=== PATIENT | female | born 1960 | race Caucasian/White ===

== ENCOUNTER 2016-08-29 21:05 | Inpatient (IN) | payer OTHER ==
--- NOTE | 2016-08-29 21:09 | PDOC ---
History of Present Illness - General History Source: Patient, Spouse, Old Records Exam Limitations: No Limitations - History of Present Illness Initial Comments: 08/29/16 21:23 The patient is a 56 year old female, accompanied by , with no past medical history, who presents to the emergency department today for further evaluation of jaundice for 2 days. The patient states that her noticed a yellowing tint to her eyes and face and decided to present to the hospital. The patient notes that she is not experiencing any type of pain. The patient denies any recent travel. The patient denies any recent sick contacts. The patient denies fever, chills, and sweats. The patient denies nausea, vomiting, and diarrhea. The patient denies chest pain, cough, and shortness of breath. PMD: Dr. Adams Stanley [phone] PAST MEDICAL HISTORY: No significant history reported PAST SURGICAL HISTORY: No significant history reported FAMILY HISTORY: No pertinent history reported SOCIAL HISTORY: Quit smoking 30 years ago. Denies alcohol use. ALLERGIES: Diazepam MEDICATIONS: Reviewed General: No fevers or chills, no weakness, no weight loss HEENT: No change in vision. No sore throat, No ear pain CardioVascular: No chest pain or shortness of breath Respiratory:No cough, or wheezing. Gastrointestinal: no nausea, vomiting, diarrhea or constipation, No rectal bleeding Genitourinary: No dysuria, hematuria, or frequency Musculoskeletal: No joint or muscle pain or swelling Neurologic: No headache, vertigo, dizziness or loss of consciousness Psychiatric: nor depression Skin: (+) Jaundice. No rashes or easy bruising Endocrine: no increased thirst or abnormal weight change Allergic: no skin or latex allergy All other systems reviewed and normal General: Well-nourished well-developed individual, no acute distress HEENT: Throat: Normal, tonsils normal, no erythema or exudate Neck: Supple, no meningeal signs, no lymphadenopathy Eyes: (+) Jaundice sclera. Pupils equally reactive and round, extraocular motion intact Chest: Nontender to palpation Cardiac: S1-S2 normal, regular rate and rhythm, no murmurs rubs or gallops Respiratory: Lungs clear to auscultation bilateral Abdomen: Soft, nondistended, normal bowel sounds, nontender to palpation diffusely Extremities: Warm, dry, no cyanosis, clubbing, or edema Skin: (+) Marked jaundice of skin Neuro: Alert and oriented x3, nonfocal exam, grossly intact, normal gait Psych: Normal mood and affect <Darwin Harris - Last Filed: 08/29/16 21:23> - History of Present Illness Initial Comments: 08/29/16 23:45 A portion of this note was documented by scribe services under my direction. I have reviewed the details of the note, within reason, and agree with the documentation. The case summary and management plan written by me. EEG shows sinus bradycardia at a rate of 52, normal intervals no acute ST-T wave changes Chest x-ray: No acute pathology Assessment and plan: This is a 56-year-old female who comes in complaining of jaundice. Patient said she has a progressive nonpainful jaundice times several days. Patient had a total bilirubin of 17.2. Patient has a CT of the abdomen pending to rule out obstruction versus pancreatic CA. Patient will be admitted to an inpatient bed. Patient will be admitted by the hospitalist service for Dr. Stanley who is her primary care doct <Carolin Horvath I - Last Filed: 08/29/16 23:50> - General Chief Complaint: Jaundice Stated Complaint: JAUNDICE Time Seen by Provider: 08/29/16 21:08 Past History <Darwin Harris - Last Filed: 08/29/16 21:23> <Carolin Horvath I - Last Filed: 08/29/16 23:50> - Past Medical History Allergies/Adverse Reactions: Allergies Allergy/AdvReac Type Severity Reaction Status Date / Time diazepam [From Valium] AdvReac Verified 08/29/16 21:06 Home Medications: Ambulatory Orders Ascorbate Calcium [Vitamin C] 1,000 mg PO DAILY 08/29/16 Atorvastatin Ca [Lipitor] 5 mg PO HS 08/29/16 Cyanocobalamin (Vitamin B-12) [Vitamin B12] 2,500 mcg PO DAILY 08/29/16 Review of Systems - Review of Systems Able to Perform ROS?: Yes <Darwin Harris - Last Filed: 08/29/16 21:23> *Physical Exam - Vital Signs Last Vital Signs Temp Pulse Resp BP Pulse Ox 97.4 F L 58 L 18 151/88 98 08/29/16 21:14 08/29/16 21:14 08/29/16 21:14 08/29/16 21:14 08/29/16 21:14 <Darwin Harris - Last Filed: 08/29/16 21:23> ED Treatment Course - LABORATORY CBC & Chemistry Diagram: 08/29/16 21:09 08/29/16 21:09 <Carolin Horvath I - Last Filed: 08/29/16 23:50> *DC/Admit/Observation/Transfer - Attestations Scribe Attestion: 08/29/16 21:23 Documentation prepared by Darwin Harris, acting as medical records custodian for Carolin Horvath MD. <Darwin Harris - Last Filed: 08/29/16 21:23> - Discharge Dispostion Admit: Yes <Carolin Horvath I - Last Filed: 08/29/16 23:50> Diagnosis at time of Disposition: Jaundice, Elevated liver function tests - Discharge Dispostion Condition at time of disposition: Stable - Referrals Referrals: Adams Stanley MD [Primary Care Provider] -
[2016-08-29 21:27] LABS: PH,URINE 5.5 (4.5-8); URINE APPEARANCE Clear; URINE BILIRUBIN 3+ (NEGATIVE); URINE GLUCOSE (UA) Negative (NEGATIVE); URINE KETONE Negative (NEGATIVE); URINE LEUK ESTERASE Negative (NEGATIVE); URINE NITRITE Negative (NEGATIVE); URINE PROTEIN Negative (NEGATIVE); URINE UROBILINOGEN 0.2 E.U/dl (0.2-1.0)
[2016-08-29 21:28] LABS: URINE COLOR YELLOW
[2016-08-29 21:29] LABS: URINE BLOOD 1 (NEGATIVE)
[2016-08-29 21:33] LABS: URINE BACTERIA FEW /hpf (NEGATIVE)
[2016-08-29 21:44] LABS: BASOPHIL 3.6 % (0-2.0); EOSINOPHIL 3.6 % (0-4.5); MCH 32.1 pg (25.7-33.7); MCHC 34.5 g/dl (32.0-36.0); MEAN PLT VOLUME 9.3 fl (7.5-11.1); NEUTROPHILS 67.3 % (42.8-82.8); PLATELET COUNT 339 K/MM3 (134-434); WHITE BLOOD COUNT 7.8 K/mm3 (4.0-10.8)
[2016-08-29 21:48] LABS: INR 0.96 (0.82-1.09); PROTHROMBIN TIME (PATIENT) 10.8 SEC (10.2-13.0)
[2016-08-29 22:08] LABS: ALK PHOS 786 U/L (32-92); ANION GAP 8 (8-16); CALCIUM 9.7 mg/dl (8.4-10.2); CO2 29 mmol/L (22-28); CREATININE 0.5 mg/dl (0.6-1.3); GLUCOSE,RANDOM 105 mg/dl (74-106); SGOT/AST 267 U/L (10-42); TOT PROT 7.9 g/dl (6.4-8.3)
[2016-08-29 22:13] LABS: BILIRUBIN,TOTAL 17.7 mg/dl (0.2-1.0)
[2016-08-29 22:54] LABS: SGPT/ALT 720 U/L (10-40)
[2016-08-30 00:23] VITALS: BMI 22.8
[2016-08-30] MEDS ORDERED: SODIUM CHLORIDE 1,000 ML IV SCH (01:30)
--- NOTE | 2016-08-30 07:13 | HP ---
CHIEF COMPLAINT: Jaundice PCP: Dr Stanley HISTORY OF PRESENT ILLNESS: Patient is a 56 year old female with a past medical history of hyperlipidemia. Patient report her noted her to be jaundiced 2 days ago. However, within the past 24 hours, the patient reports a worsening of jaundice and sought evaluation in the emergency department. Patient denies any abdominal pain, nausea, or vomiting. She does report a past diagnosis of gallstones as a teenager. She was given antibiotics and the pain resolved. Patient denies any reoccurrence since adolescence. ER course was notable for: (1) ct abd/pelvis w/o contrast, distended gallbladder with suspected biliary sludge/small calculi (2) ast 260 alt 720 (3) wbc 7.8 Recent Travel: none PAST MEDICAL HISTORY: hyperlipidemia PAST SURGICAL HISTORY: tonsilectomy (child) Social History: resides with , employed Smoking: none Alcohol:none Drugs: none Family History: mother-, MS father- CAD Allergies diazepam [From Valium] Adverse Reaction (Verified 08/29/16 21:06) HOME MEDICATIONS: Home Medications Medication Instructions Recorded Ascorbate Calcium [Vitamin C] 1,000 mg PO DAILY 08/29/16 Atorvastatin Ca [Lipitor] 5 mg PO HS 08/29/16 Cyanocobalamin (Vitamin B-12) 2,500 mcg PO DAILY 08/29/16 [Vitamin B12] REVIEW OF SYSTEMS CONSTITUTIONAL: Absent: fever, chills, diaphoresis, generalized weakness, malaise, loss of appetite, weight change HEENT: Absent: rhinorrhea, nasal congestion, throat pain, throat swelling, difficulty swallowing, mouth swelling, ear pain, eye pain, visual changes CARDIOVASCULAR: Absent: chest pain, syncope, palpitations, irregular heart rate, lightheadedness , peripheral edema RESPIRATORY: Absent: cough, shortness of breath, dyspnea with exertion, orthopnea, wheezing, stridor, hemoptysis GASTROINTESTINAL: Absent: abdominal pain, abdominal distension, nausea, vomiting, diarrhea, constipation, melena, hematochezia GENITOURINARY: Absent: dysuria, frequency, urgency, hesitancy, hematuria, flank pain, genital pain MUSCULOSKELETAL: Absent: myalgia, arthralgia, joint swelling, back pain, neck pain SKIN: Present: jaundice Absent: rash, itching, pallor HEMATOLOGIC/IMMUNOLOGIC: Absent: easy bleeding, easy bruising, lymphadenopathy, frequent infections ENDOCRINE: Absent: unexplained weight gain, unexplained weight loss, heat intolerance, cold intolerance NEUROLOGIC: Absent: headache, focal weakness or paresthesias, dizziness, unsteady gait, seizure, mental status changes, bladder or bowel incontinence PSYCHIATRIC: Absent: anxiety, depression, suicidal or homicidal ideation, hallucinations. PHYSICAL EXAMINATION Vital Signs - 24 hr 08/30/16 08/30/16 08/30/16 00:14 00:16 04:14 Temperature 98.2 F 98.2 F 97.9 F Pulse Rate 53 L 53 L 53 L Respiratory 18 18 18 Rate Blood Pressure 143/70 143/70 116/58 O2 Sat by Pulse 100 Oximetry (%) 08/30/16 06:37 Temperature Pulse Rate Respiratory Rate Blood Pressure O2 Sat by Pulse 100 Oximetry (%) GENERAL: Awake, alert, and fully oriented, in no acute distress. HEAD: Normal with no signs of trauma. EYES: Pupils equal, round and reactive to light, extraocular movements intact, icteric sclera conjunctiva clear. No lid lag. EARS, NOSE, THROAT: Ears normal, nares patent, oropharynx clear without exudates. Moist mucous membranes. NECK: Normal range of motion, supple without lymphadenopathy, JVD, or masses. LUNGS: Breath sounds equal, clear to auscultation bilaterally. No wheezes, and no crackles. No accessory muscle use. HEART: Regular rate and rhythm, normal S1 and S2 without murmur, rub or gallop. ABDOMEN: Soft, nontender, not distended, normoactive bowel sounds, no guarding, no rebound, no masses. No hepatomegaly or splenomegaly. MUSCULOSKELETAL: Normal range of motion at all joints. No bony deformities or tenderness. No CVA tenderness. UPPER EXTREMITIES: 2+ pulses, warm, well-perfused. No cyanosis. No clubbing. No peripheral edema. LOWER EXTREMITIES: 2+ pulses, warm, well-perfused. No calf tenderness. No peripheral edema. NEUROLOGICAL: Cranial nerves II-XII intact. Normal speech. Normal gait. PSYCHIATRIC: Cooperative. Good eye contact. Appropriate mood and affect. SKIN: Jaundice, Warm, dry, normal turgor, no rashes or lesions noted, normal capillary refill. ASSESSMENT/PLAN: 1) GI transanimitis - ct scan of abd/pelvis reviewed, concern for choleductholiasis, pt is pending MRCP - pending hepatitis panel - NPO-->IVF - will start on rocephin and flagyl - case discussed with Dr Morris, GI, in regards to high clinical suspicion for choleductholiasis and ERCP, pt will be transferred to [facility] for further GI evaluation and management. 2) Card hyperlipidemia - hold statin due to elevated LFT's F/E/N - npo-->ivf - replete lytes prn PPX - zantac - hold ac pending GI eval, pt oob - scd dispo: requires inpatient admission. Problem List - Problem (1) Cholelithiasis with choledocholithiasis Code(s): K80.70 - CALCULUS OF GB AND BILE DUCT W/O CHOLECYST W/O OBSTRUCTION Visit type - Emergency Visit Emergency Visit: Yes ED Registration Date: 08/29/16 Care time: The patient presented to the Emergency Department on the above date and was hospitalized for further evaluation of their emergent condition. - New Patient This patient is new to me today: Yes Date on this admission: 08/30/16 - Critical Care Critical Care patient: No
[2016-08-30 08:40] LABS: ALBUMIN 3.3 g/dl (3.5-5.0); ALK PHOS 715 U/L (32-92); ANION GAP 9 (8-16); CALCIUM 9.2 mg/dl (8.4-10.2); CO2 25 mmol/L (22-28); GLUCOSE,RANDOM 102 mg/dl (74-106); SGOT/AST 212 U/L (10-42); TOT PROT 6.5 g/dl (6.4-8.3)
[2016-08-30 08:48] LABS: MCH 31.5 pg (25.7-33.7); MEAN CELL VOLUME 92.8 fl (80-96); MEAN PLT VOLUME 9.3 fl (7.5-11.1); PLATELET COUNT 308 K/MM3 (134-434); RDW 14.2 % (11.6-15.6); WHITE BLOOD COUNT 5.9 K/mm3 (4.0-10.8)
[2016-08-30 09:26] LABS: CREATININE < 0.3 mg/dl (0.6-1.3); SGPT/ALT 565 U/L (10-40)
[2016-08-30] MEDS ORDERED: CEFTRIAXONE 1 GM in DEXTROSE 5%-WATER - 50 ML IVPB SCH (12:00)
[2016-08-30] MEDS: ACETAMINOPHEN/CAFFEINE/BUTALBITAL 1 TAB PO PRN ×2 (12:02→17:52)
[2016-08-30] MEDS: RANITIDINE HCL 150 MG TABLET (FP) PO SCH (12:02)
[2016-08-30] MEDS: DEXTROSE 5%-NORMAL SALINE 1,000 ML IV SCH (12:02)
--- NOTE | 2016-08-30 12:16 | EKG ---
Test Reason : Blood Pressure : / mmHG Vent. Rate : 052 BPM Atrial Rate : 052 BPM P-R Int : 132 ms QRS Dur : 076 ms QT Int : 454 ms P-R-T Axes : 047 058 058 degrees QTc Int : 422 ms SINUS BRADYCARDIA OTHERWISE NORMAL ECG NO PREVIOUS ECGS AVAILABLE Confirmed by KETAN NELSON, XIAO ([id number]) on 08/30/2016 12:15:47 PM Referred By: MD SCHWARZ Confirmed By:XIAO ACEVES MD
[2016-08-30] MEDS: CEFTRIAXONE 50 ML IVPB SCH (12:17)
[2016-08-30 12:29] LABS: AMYLASE 45 U/L (25-125)
[2016-08-30] MEDS: METRONIDAZOLE 500 MG PREMIXED 100 ML IVPB SCH ×2 (12:40→17:52)
[2016-08-31] MEDS: METRONIDAZOLE 500 MG PREMIXED 100 ML IVPB SCH ×3 (01:28→17:24)
[2016-08-31 08:42] LABS: ALK PHOS 621 U/L (32-92); ANION GAP 7 (8-16); BILIRUBIN,TOTAL 14.1 mg/dl (0.2-1.0); CO2 29 mmol/L (22-28); GLUCOSE,RANDOM 132 mg/dl (74-106); MAGNESIUM 1.9 mg/dL (1.8-2.4); PHOSPHOROUS 3.4 mg/dl (2.5-4.6); SGOT/AST 182 U/L (10-42); TOT PROT 5.8 g/dl (6.4-8.3)
[2016-08-31 08:59] LABS: BASOPHIL 0.5 % (0-2.0); CREATININE < 0.3 mg/dl (0.6-1.3); MCHC 34.6 g/dl (32.0-36.0); MEAN CELL VOLUME 92.5 fl (80-96); MEAN PLT VOLUME 9.6 fl (7.5-11.1); NEUTROPHILS 67.5 % (42.8-82.8); PLATELET COUNT 286 K/MM3 (134-434); RDW 14.1 % (11.6-15.6); SGPT/ALT < 9 U/L (10-40); WHITE BLOOD COUNT 5.7 K/mm3 (4.0-10.8)
[2016-08-31] MEDS: RANITIDINE HCL 150 MG TABLET (FP) PO SCH (09:10)
[2016-08-31] MEDS: CEFTRIAXONE 50 ML IVPB SCH (09:10)
[2016-08-31] MEDS: DEXTROSE 5%-NORMAL SALINE 1,000 ML IV SCH ×3 (12:16→17:35)
--- NOTE | 2016-08-31 13:04 | PN ---
Physical Exam: SUBJECTIVE: Patient seen and examined, reports feeling well, denies any abdominal pain, patient awaiting bed availability at [facility] for GI evaluation. OBJECTIVE: Patient is a 56 year old female with a past medical history of hyperlipidemia. patient was admitted from the emergency department for emergent condition. Vital Signs Period Temp Pulse Resp BP Sys/Horne Pulse Ox Last 24 Hr 97.8 F-98.4 F 47-58 18-18 98-129/55-63 98-100 GENERAL: The patient is awake, alert, and fully oriented, in no acute distress. HEAD: Normal with no signs of trauma. EYES: PERRL, extraocular movements intact, sclera icteric, conjunctiva clear. No ptosis. ENT: Ears normal, nares patent, oropharynx clear without exudates, moist mucous membranes. NECK: Trachea midline, full range of motion, supple. LUNGS: Breath sounds equal, clear to auscultation bilaterally, no wheezes, no crackles, no accessory muscle use. HEART: Regular rate and rhythm, S1, S2 without murmur, rub or gallop. ABDOMEN: Soft, nontender, nondistended, normoactive bowel sounds, no guarding, no rebound, no hepatosplenomegaly, no masses. EXTREMITIES: 2+ pulses, warm, well-perfused, no edema. NEUROLOGICAL: Cranial nerves II through XII grossly intact. Normal speech, gait not observed. PSYCH: Normal mood, normal affect. SKIN: jaundic, Warm, dry, normal turgor, no rashes or lesions noted Laboratory Results - last 24 hr 08/30/16 08/30/16 08/31/16 07:38 07:38 07:47 WBC Cancelled 5.7 Corrected WBC (auto) Cancelled RBC Cancelled 4.11 Hgb Cancelled 13.2 Hct Cancelled 38.1 MCV Cancelled 92.5 MCHC Cancelled 34.6 RDW Cancelled 14.1 Plt Count Cancelled 286 MPV Cancelled 9.6 Neutrophils % Cancelled 67.5 Lymphocytes % Cancelled 15.5 Monocytes % Cancelled 9.5 Eosinophils % Cancelled 7.0 H D Basophils % Cancelled 0.5 Differential Comment Cancelled Smudge Cells Cancelled Platelet Estimate Cancelled Platelet Comment Cancelled RBC Morphology Cancelled Sodium Potassium Chloride Carbon Dioxide Anion Gap BUN Creatinine Creat Clearance w eGFR Random Glucose Calcium Phosphorus Magnesium Total Bilirubin AST ALT Alkaline Phosphatase Total Protein Albumin Hepatitis C Antibody <0.1 08/31/16 07:47 WBC Corrected WBC (auto) RBC Hgb Hct MCV MCHC RDW Plt Count MPV Neutrophils % Lymphocytes % Monocytes % Eosinophils % Basophils % Differential Comment Smudge Cells Platelet Estimate Platelet Comment RBC Morphology Sodium 140 Potassium 4.3 Chloride 104 Carbon Dioxide 29 H Anion Gap 7 L BUN 9 D Creatinine < 0.3 L Creat Clearance w eGFR > 60 Random Glucose 132 H D Calcium 9.0 Phosphorus 3.4 Magnesium 1.9 Total Bilirubin 14.1 H AST 182 H ALT < 9 L D Alkaline Phosphatase 621 H Total Protein 5.8 L Albumin 3.0 L Hepatitis C Antibody Active Medications Generic Name Dose Route Start Last Admin Trade Name Freq PRN Reason Stop Dose Admin Acetaminophen/Butalbital/Caffeine 1 tablet 08/30/16 11:47 08/30/16 17:52 Fioricet - PO 1 tablet Q6H PRN Administration HEADACHE Dextrose/Sodium Chloride 1,000 mls @ 100 mls/hr 08/30/16 12:00 08/31/16 12:16 D5-Ns - IV 100 mls/hr ASDIR FRANCISCO Administration Metronidazole 100 mls @ 100 mls/hr 08/30/16 12:15 08/31/16 09:32 Flagyl 500mg Premixed Ivpb - IVPB 100 mls/hr Q8H-IV FRANCISCO Administration Ceftriaxone Sodium 50 mls @ 100 mls/hr 08/30/16 12:15 08/31/16 09:10 Rocephin 1gm Ivpb (Pre-Docked) IVPB 100 mls/hr DAILY FRANCISCO Administration Ranitidine HCl 150 mg 08/30/16 12:00 08/31/16 09:10 Zantac - PO 150 mg DAILY FRANCISCO Administration IMAGING ct of abd/pelvis: distended gallbladder with suspected bilary sludge/small calculi, moderate dilation of the intra and extrahepatic bililary tree with cbc measuring up to 1.5cm (as per radiologist, Dr Silveira) MRI of abd/pelvis w/mrcp: distal CBD obstructive process resulting in marked proximal intra and extrahepatic bililary ductal dilation with cystic duct dilation and marked distention of gallbladder, no evidence of cholelithasis or choledocholithiasis. ASSESSMENT/PLAN: 1) GI CBD obstruction likely secondary to stricture vs neoplasm - MRCP reviewed, pt is pending transfer to [facility] for GI eval, case discussed with Dr Morris in regards to ERCP - remain npo continue ivf - continue rocephin and flagyl - ast/alt trending downward, repeat lft's in am, (continue to trend) ca 19, cea , afp - hepatitis c negative, pending complete hepatitis panel 2) Card hyperlipidemia - hold statin due to elevated LFT's F/E/N - npo-->ivf - replete lytes prn PPX - zantac - hold ac pending GI eval, pt oob - scd dispo: requires inpatient admission. Problem List - Problems (1) Common bile duct (CBD) obstruction Code(s): K83.1 - OBSTRUCTION OF BILE DUCT
[2016-08-31] MEDS: ACETAMINOPHEN/CAFFEINE/BUTALBITAL 1 TAB PO PRN (16:19)
[2016-08-31] MEDS ORDERED: traMADol HCL 50 MG TABLET PO PRN (17:04)
--- NOTE | 2016-08-31 17:20 | CONSULT ---
Consult Consult Specialty:: General Surgery Referred by:: Tomasa Camarillo NP Reason for Consultation:: CBD obstruction - History of Present Illness Chief Complaint: painless jaundice History of Present Illness: 56yo healthy F with hyperlipidemia first noticed yellow tinge to skin about a week to a week and a half ago, associated with light stools. Color change became prominent in last few days, and able to confirm, so she came to ER. Denies pain, n/v, diarrhea, f/c, bloody or black stools, weight gain or loss , night sweats; + bloating at times recently, better with gas-X, some recent constipation, also better, light-colored stools started about the same time. Last BM yesterday. Workup in the ER showed significantly elevated LFTs (bili ~15 , GGT 2000, transaminitis), normal INR, normal wbc, afebrile. Initial noncontrast CT suggested possible sludge or tiny calculi in gallbladder with intra and extrahepatic biliary dilation, CBD 1.5cm. MRCP without contrast showed CBD to 1.6cm above smooth narrowing just before ampulla, + intrahepatic dilation, no evidence of stones in gallbladder or ducts, no evident pancreatic or liver masses. Pt states jaundice has improved some today. LFTs are declining. GI has been consulted for ERCP. Pt also states she had "sand in urine" in younger years, which resolved with an antibiotic. At one point, she thought that was related to gallstones, but more likely represented kidney or ureteral stones. - History Source History Provided By: Patient, Medical Record Limitations to Obtaining History: No Limitations - Past Medical History Cardio/Vascular: Yes: Hyperlipdemia, Murmur (as child, went away) Renal/: Yes: Renal Calculi (describes "sand in urine" in youth, went away with antibiotics) ...LMP: 11/30/10 ...: No - Past Surgical History Past Surgical History: Yes: Tubal Ligation (laparoscopic 24 yrs ago) Additional Surgical History: bilateral breast implants ~20 yrs ago - Alcohol/Substance Use Hx Alcohol Use: Yes (occas wine cooler) History of Substance Use: reports: None - Smoking History Smoking history: Former smoker Have you smoked in the past 12 months: No Aproximately how many cigarettes per day: 0 If you are a former smoker, when did you quit?: 1994 - 1ppd x 20 yrs Home Medications - Allergies Allergies/Adverse Reactions: Allergies Allergy/AdvReac Type Severity Reaction Status Date / Time diazepam [From Valium] AdvReac Intermediate Vomiting Verified 08/31/16 13:15 - Home Medications Home Medications: Ambulatory Orders Glucosamine/MSM/Chondroitin A [Glucosamine Chondroit Msm Tab] 2 each PO DAILY tablet 06/11/15 Multivitamin [Daily Multiple Vitamin] 1 each PO DAILY tablet 06/11/15 Ascorbate Calcium [Vitamin C] 1,000 mg PO DAILY 08/29/16 Atorvastatin Ca [Lipitor] 5 mg PO HS 08/29/16 Cyanocobalamin (Vitamin B-12) [Vitamin B12] 1,000 mcg PO DAILY 08/29/16 Home Medications (free text): also fish oil, hip&joint supplement, b-complex Family Disease History - Family Disease History Family Disease History: Heart Disease: Father (ND, CABGx3, stroke after), Other : Mother (MS, asthma, emphysema) Review of Systems Findings/Remarks: Pt drinks 3-4 cups coffee daily, plus sometimes tea. - Review of Systems Constitutional: denies: Chills, Fever, Night Sweats, Unintentional Wgt. Loss Eyes: reports: Other (wears glasses). denies: Blurred Vision, Double Vision HENT: denies: Difficult Swallowing, Hearing Loss, Throat Pain Cardiovascular: denies: Chest Pain, Palpitations, Shortness of Breath Respiratory: denies: Cough, Exercise Intolerance, SOB, SOB on Exertion Gastrointestinal: reports: Bloating (recently), Constipation (recently, got better with gas-x), Other (light (celi-colored) stools for about 1.5 weeks). denies: Abdominal Pain, Diarrhea, Melena, Nausea, Rectal Bleeding, Vomiting Genitourinary: denies: Burning, Dysuria Breasts: reports: Breast Implants Musculoskeletal: denies: Back Pain, Joint Pain, Joint Swelling, Muscle Pain, Muscle Weakness Integumentary: reports: Change in Color (jaundice x about a week and a half - wasn't sure at first). denies: Pruritis Neurological: reports: Headache (not usually, but has now from caffeine withdrawal). denies: Confusion, Dizziness Endocrine: denies: Unexplained Weight Gain, Unexplained Weight Loss Hematology/Lymphatic: denies: Easily Bruised, Swollen Glands Physical Exam Vital Signs: Vital Signs Temperature 98.4 F 08/31/16 09:00 Pulse Rate 58 L 08/31/16 11:35 Respiratory Rate 18 08/31/16 09:00 Blood Pressure 129/62 08/31/16 11:35 O2 Sat by Pulse Oximetry (%) 98 08/31/16 10:20 Constitutional: Yes: Well Nourished, No Distress, Calm Eyes: Yes: EOM Intact, Sclera Icterus HENT: Yes: Atraumatic, Normocephalic Cardiovascular: Yes: Regular Rate and Rhythm. No: Murmur Respiratory: Yes: Regular, CTA Bilaterally Gastrointestinal: Yes: Normal Bowel Sounds, Soft. No: Distention, Hepatomegaly , Splenomegaly, Tenderness ...Rectal Exam: Yes: Deferred Breast(s): Yes: Breast Implants (bilaterally) Musculoskeletal: No: Back Pain, Joint Stiffness Extremities: No: Calf Tenderness, Deformity Edema: No Peripheral Pulses WNL: Yes Integumentary: Yes: Jaundice (less than yesterday per pt). No: Bruising, Rash Neurological: Yes: Alert, Oriented Labs: CBC, BMP 08/31/16 07:47 08/31/16 07:47 CMP Sodium 140 mmol/L (136-145) 08/31/16 07:47 Potassium 4.3 mmol/L (3.5-5.1) 08/31/16 07:47 Chloride 104 mmol/L (98-107) 08/31/16 07:47 Carbon Dioxide 29 mmol/L (22-28) H 08/31/16 07:47 Anion Gap 7 (8-16) L 08/31/16 07:47 BUN 9 mg/dl (7-18) D 08/31/16 07:47 Creatinine < 0.3 mg/dl (0.6-1.3) L 08/31/16 07:47 Creat Clearance w eGFR > 60 (>60) 08/31/16 07:47 Random Glucose 132 mg/dl (74-106) H D 08/31/16 07:47 Calcium 9.0 mg/dl (8.4-10.2) 08/31/16 07:47 Phosphorus 3.4 mg/dl (2.5-4.6) 08/31/16 07:47 Magnesium 1.9 mg/dL (1.8-2.4) 08/31/16 07:47 Total Bilirubin 14.1 mg/dl (0.2-1.0) H 08/31/16 07:47 Direct Bilirubin 8.6 mg/dl (0.0-0.2) H D 08/30/16 07:00 GGT 2010 U/L (3-64) H 08/29/16 21:32 AST 182 U/L (10-42) H 08/31/16 07:47 ALT < 9 U/L (10-40) L D 08/31/16 07:47 Alkaline Phosphatase 621 U/L (32-92) H 08/31/16 07:47 Total Protein 5.8 g/dl (6.4-8.3) L 08/31/16 07:47 Albumin 3.0 g/dl (3.5-5.0) L 08/31/16 07:47 Total Amylase 45 U/L (25-125) 08/30/16 07:38 Lipase 48 U/L (22-51) 08/30/16 07:38 INR, PTT INR 0.96 (0.82-1.09) L 08/29/16 21:09 Imaging - Results Cat Scan: Report Reviewed (cannot see images) MRI: Report Reviewed (distal CBD smooth narrowing just above ampulla with dilation above to 1.6cm and intrahepatic dilation, no stones in GB or duct, done without contrast) Problem List - Problems (1) Common bile duct (CBD) obstruction Assessment/Plan: Pt with painless jaundice, CBD obstruction without evidence of stones. GI consulted for ERCP - will likely need brushings/biopsies and may need stent. Recommend sending tumor markers - Ca 19.9, AFP, CEA. Agree with IV hydration and NPO; if ERCP not to be done today, may consider allowing po. Would avoid acetaminophen (for liver) and aspirin/NSAIDs (pending procedure). Pt may at some point need MRCP repeated with contrast. Trend labs, LFTs already improving. INR normal, consider baseline PTT. Depending on findings at ERCP and other results, pt may need tertiary center and hepatobiliary surgeon. In absence of gallstones, simple cholecystectomy likely not indicated. Will remain available for questions or followup needs. Discussed with S[employer] Tomasa Camarillo. Thank you for the opportunity to participate in the care of this patient. Code(s): K83.1 - OBSTRUCTION OF BILE DUCT
--- NOTE | 2016-08-31 19:54 | CON.GI ---
Consult Consult Specialty:: gastroenterology Referred by:: hospitalist - History of Present Illness History of Present Illness: 56 y/o F was doing well until 2 weeks ago when he developed progressive jaundice , icteric sclerae. One week she developed tea colored urine. She denies weight loss, fever and abdominal pain. - History Source History Provided By: Patient - Past Medical History Cardio/Vascular: Yes: Hyperlipdemia, Murmur (as child, went away) Renal/: Yes: Renal Calculi (describes "sand in urine" in youth, went away with antibiotics) ...LMP: 11/30/10 ...: No - Past Surgical History Past Surgical History: Yes: Tubal Ligation (laparoscopic 24 yrs ago) Additional Surgical History: bilateral breast implants ~20 yrs ago - Alcohol/Substance Use Hx Alcohol Use: Yes (occas wine cooler) History of Substance Use: reports: None - Smoking History Smoking history: Former smoker Have you smoked in the past 12 months: No Aproximately how many cigarettes per day: 0 If you are a former smoker, when did you quit?: 1994 - pd x 20 yrs Home Medications - Allergies Allergies/Adverse Reactions: Allergies Allergy/AdvReac Type Severity Reaction Status Date / Time diazepam [From Valium] AdvReac Intermediate Vomiting Verified 08/31/16 13:15 - Home Medications Home Medications: Ambulatory Orders Glucosamine/MSM/Chondroitin A [Glucosamine Chondroit Msm Tab] 2 each PO DAILY tablet 06/11/15 Multivitamin [Daily Multiple Vitamin] 1 each PO DAILY tablet 06/11/15 Ascorbate Calcium [Vitamin C] 1,000 mg PO DAILY 08/29/16 Atorvastatin Ca [Lipitor] 5 mg PO HS 08/29/16 Cyanocobalamin (Vitamin B-12) [Vitamin B12] 1,000 mcg PO DAILY 08/29/16 Family Disease History - Family Disease History Family Disease History: Heart Disease: Father (ND, CABGx3, stroke after), Other : Mother (MS, asthma, emphysema) Review of Systems - Review of Systems Constitutional: reports: Fever Eyes: denies: Blind Spots HENT: denies: Difficult Swallowing Neck: denies: Decreased ROM Cardiovascular: denies: Chest Pain Respiratory: denies: Cough Gastrointestinal: denies: Abdominal Pain, Bloating, Constipation, Diarrhea, Dysphagia, Indigestion, Melena, Nausea, Rectal Bleeding, Vomiting Physical Exam-GI Vital Signs: Vital Signs Temperature 97.6 F 08/31/16 18:41 Pulse Rate 49 L 08/31/16 18:41 Respiratory Rate 20 08/31/16 18:41 Blood Pressure 124/72 08/31/16 18:41 O2 Sat by Pulse Oximetry (%) 99 08/31/16 14:00 Constitutional: Yes: Well Nourished Eyes: Yes: Conjunctiva Clear HENT: Yes: Atraumatic Neck: Yes: Trachea Midline Cardiovascular: Yes: Regular Rate and Rhythm Respiratory: Yes: CTA Bilaterally ...Palpate: Yes: Soft. No: Firm/Rigid, Guarding, Hepatomegaly, Mass, Pulsatile Mass, Splenomegaly, Tenderness, Tenderness, Epigastium Labs: CBC, BMP 08/31/16 07:47 08/31/16 07:47 INR, PTT INR 0.96 (0.82-1.09) L 08/29/16 21:09 Problem List - Problems (1) Common bile duct stricture Assessment/Plan: R> for ERCP discussed procedure with the patient and her son including pancreatitis, consent obtained Code(s): K83.1 - OBSTRUCTION OF BILE DUCT
[2016-09-01 00:10] LABS: HEP B SURFACE AB Reactive (.)
[2016-09-01] MEDS: DEXTROSE 5%-NORMAL SALINE 1,000 ML IV SCH (01:00)
[2016-09-01] MEDS: METRONIDAZOLE 500 MG PREMIXED 100 ML IVPB SCH ×2 (01:15→10:20)
[2016-09-01 07:50] LABS: BASOPHIL 0.5 % (0-2.0); EOSINOPHIL 7.4 % (0-4.5); MCH 32.2 pg (25.7-33.7); MCHC 34.4 g/dl (32.0-36.0); MEAN CELL VOLUME 93.6 fl (80-96); MEAN PLT VOLUME 9.2 fl (7.5-11.1); NEUTROPHILS 65.5 % (42.8-82.8); PLATELET COUNT 252 K/MM3 (134-434); RDW 14.3 % (11.6-15.6); WHITE BLOOD COUNT 4.9 K/mm3 (4.0-10.0)
[2016-09-01 08:24] LABS: ALBUMIN 2.9 g/dl (3.4-5.0); ANION GAP 6 (8-16); BILIRUBIN,TOTAL 13.9 mg/dL (0.2-1.0); CALCIUM 8.5 mg/dL (8.5-10.1); CO2 33 mmol/L (21-32); CREATININE 0.7 mg/dL (0.55-1.02); GLUCOSE,RANDOM 152 mg/dL (74-106); MAGNESIUM 2.2 mg/dL (1.8-2.4); SGOT/AST 167 U/L (15-37); TOT PROT 5.7 g/dl (6.4-8.2)
[2016-09-01 08:25] LABS: ALK PHOS 638 U/L (45-117)
[2016-09-01 08:26] LABS: SGPT/ALT 502 U/L (12-78)
[2016-09-01] MEDS: RANITIDINE HCL 150 MG TABLET (FP) PO SCH (09:04)
[2016-09-01] MEDS: CEFTRIAXONE 50 ML IVPB SCH (09:20)
--- NOTE | 2016-09-01 13:06 | PN ---
Progress Note, Physician Chief Complaint: painless jaundice History of Present Illness: Pt seen and examined in bed; she states she is feeling ok, no complaints of pain or nausea. NPO for ERCP later today. Per pt, GI mentioned possible EUS at [facility] as well. - Current Medication List Current Medications: Active Medications Metronidazole (Flagyl 500mg Premixed Ivpb -) 100 mls @ 100 mls/hr IVPB Q8H-IV FRANCISCO Last Admin: 09/01/16 10:20 Dose: 100 mls/hr Ceftriaxone Sodium (Rocephin 1gm Ivpb (Pre-Docked)) 50 mls @ 100 mls/hr IVPB DAILY FR[facility]ISCO Last Admin: 09/01/16 09:20 Dose: 100 mls/hr Dextrose/Sodium Chloride (D5-Ns -) 1,000 mls @ 125 mls/hr IV ASDIR [facility] Last Admin: 09/01/16 01:00 Dose: 125 mls/hr Ranitidine HCl (Zantac -) 150 mg PO DAILY FR[facility]ISCO Last Admin: 09/01/16 09:04 Dose: Not Given Tramadol HCl (Ultram -) 50 mg PO Q6H PRN PRN Reason: PAIN - Objective Vital Signs: Vital Signs Temperature 98.2 F 09/01/16 10:00 Pulse Rate 49 L 09/01/16 10:00 Respiratory Rate 16 09/01/16 10:00 Blood Pressure 122/64 09/01/16 10:00 O2 Sat by Pulse Oximetry (%) 99 08/31/16 14:00 Constitutional: Yes: Well Nourished, No Distress, Calm Eyes: Yes: Sclera Icterus Cardiovascular: Yes: Regular Rate and Rhythm. No: Murmur Respiratory: Yes: Regular, CTA Bilaterally Gastrointestinal: Yes: Soft. No: Tenderness Integumentary: Yes: Jaundice Neurological: Yes: Alert, Oriented Labs: CBC, BMP 09/01/16 07:04 09/01/16 07:04 INR, PTT INR 0.96 (0.82-1.09) L 08/29/16 21:09 CMP Sodium 141 mmol/L (136-145) 09/01/16 07:04 Potassium 4.1 mmol/L (3.5-5.1) 09/01/16 07:04 Chloride 102 mmol/L (98-107) 09/01/16 07:04 Carbon Dioxide 33 mmol/L (21-32) H 09/01/16 07:04 Anion Gap 6 (8-16) L 09/01/16 07:04 BUN 7 mg/dL (7-18) 09/01/16 07:04 Creatinine 0.7 mg/dL (0.55-1.02) 09/01/16 07:04 Creat Clearance w eGFR > 60 (>60) 09/01/16 07:04 Random Glucose 152 mg/dL (74-106) H 09/01/16 07:04 Phosphorus 3.4 mg/dl (2.5-4.6) 08/31/16 07:47 Calcium 8.5 mg/dL (8.5-10.1) 09/01/16 07:04 Magnesium 2.2 mg/dL (1.8-2.4) 09/01/16 07:04 Direct Bilirubin 8.6 mg/dl (0.0-0.2) H D 08/30/16 07:00 GGT 2010 U/L (3-64) H 08/29/16 21:32 Total Bilirubin 13.9 mg/dL (0.2-1.0) H 09/01/16 07:04 AST 167 U/L (15-37) H 09/01/16 07:04 ALT 502 U/L (12-78) H 09/01/16 07:04 Alkaline Phosphatase 638 U/L (45-117) H 09/01/16 07:04 Total Protein 5.7 g/dl (6.4-8.2) L 09/01/16 07:04 Albumin 2.9 g/dl (3.4-5.0) L 09/01/16 07:04 Total Amylase 45 U/L (25-125) 08/30/16 07:38 Lipase 382 U/L (73-393) 09/01/16 07:04 CEA, AFP, Ca 19.9 pending - ....Imaging Other: Pending (ERCP) Problem List - Problems (1) Common bile duct (CBD) obstruction Assessment/Plan: CBD obstruction without stones pending ERCP today by GI. Further workup depending on findings +/- stent placement, tumor markers and resolution of elevated LFTs. Will follow up after study. Code(s): K83.1 - OBSTRUCTION OF BILE DUCT
--- NOTE | 2016-09-01 13:29 | PN ---
Progress Note (short form) - Note Progress Note: Subjective: The patient was seen and examined at the bedside, she has no complaints at this time. NPO for ERCP Current Medications Generic Name Dose Route Start Last Admin Trade Name Freelissa PRN Reason Stop Dose Admin Metronidazole 100 mls @ 100 mls/hr 08/30/16 12:15 09/01/16 10:20 Flagyl 500mg Premixed Ivpb - IVPB 100 mls/hr Q8H-IV FRANCISCO Administration Ceftriaxone Sodium 50 mls @ 100 mls/hr 08/30/16 12:15 09/01/16 09:20 Rocephin 1gm Ivpb (Pre-Docked) IVPB 100 mls/hr DAILY FRANCISCO Administration Dextrose/Sodium Chloride 1,000 mls @ 125 mls/hr 08/31/16 17:09 09/01/16 01:00 D5-Ns - IV 125 mls/hr ASDIR FRANCISCO Administration Ranitidine HCl 150 mg 08/30/16 12:00 09/01/16 09:04 Zantac - PO Not Given DAILY FRANCISCO Tramadol HCl 50 mg 08/31/16 17:04 Ultram - PO Q6H PRN PAIN Objective: Vital Signs Period Temp Pulse Resp BP Sys/Horne Pulse Ox Last 24 Hr 97.5 F-98.2 F 46-52 14-20 108-129/58-74 99 Physical Exam: General: NAD, A&Ox3, diffusely jaundice HEENT: Sclera icteric Lungs: CTA bilaterally Heart: RRR, S1S2 Abd: Soft, non-tender, non-distended. Normoactive bowel sounds Ext: warm, well-perfused. 2+ DP/PT bilaterally Neuro: CN 2-12 intact CBCD WBC 4.9 K/mm3 (4.0-10.0) 09/01/16 07:04 RBC 3.92 M/mm3 (3.60-5.2) 09/01/16 07:04 Hgb 12.6 GM/dL (10.7-15.3) 09/01/16 07:04 Hct 36.7 % (32.4-45.2) 09/01/16 07:04 MCV 93.6 fl (80-96) 09/01/16 07:04 MCHC 34.4 g/dl (32.0-36.0) 09/01/16 07:04 RDW 14.3 % (11.6-15.6) 09/01/16 07:04 Plt Count 252 K/MM3 (134-434) 09/01/16 07:04 MPV 9.2 fl (7.5-11.1) 09/01/16 07:04 CMP Sodium 141 mmol/L (136-145) 09/01/16 07:04 Potassium 4.1 mmol/L (3.5-5.1) 09/01/16 07:04 Chloride 102 mmol/L (98-107) 09/01/16 07:04 Carbon Dioxide 33 mmol/L (21-32) H 09/01/16 07:04 Anion Gap 6 (8-16) L 09/01/16 07:04 BUN 7 mg/dL (7-18) 09/01/16 07:04 Creatinine 0.7 mg/dL (0.55-1.02) 09/01/16 07:04 Creat Clearance w eGFR > 60 (>60) 09/01/16 07:04 Random Glucose 152 mg/dL (74-106) H 09/01/16 07:04 Calcium 8.5 mg/dL (8.5-10.1) 09/01/16 07:04 Total Bilirubin 13.9 mg/dL (0.2-1.0) H 09/01/16 07:04 AST 167 U/L (15-37) H 09/01/16 07:04 ALT 502 U/L (12-78) H 09/01/16 07:04 Alkaline Phosphatase 638 U/L (45-117) H 09/01/16 07:04 Total Protein 5.7 g/dl (6.4-8.2) L 09/01/16 07:04 Albumin 2.9 g/dl (3.4-5.0) L 09/01/16 07:04 Assessment: This is a 56 year old female with PMHx of hyperlipidemia who presented to the ED with jaundice. Plan: 1) GI: CBD obstruction - MRCP with distal CBD obstruction with marked proximal intra and extrahepatic biliary ductal dilatation with cystic duct dilatation and marked distention of the gallbladder. No evidence of cholelithiasis or choledocholithiasis - For ERCP today - Transaminitis noted - F/u CA19-9, CEA, tumor marker AFP - Will discontinue abx, no cholangitis noted on MRCP - Appreciate GI consult - Appreciate surgery consult 2) Cardiology: Hyperlipidemia - Hold Lipitor 3) F/E/N: - Monitor electrolytes - NPO for ERCP 4) Prophylaxis: - SCDs bilaterally - Hold all chemical DVT prophylaxis 2/2 ERCP today 5) Dispo: - Requires continued inpatient care CODE STATUS: FULL CODE Visit type - Emergency Visit Emergency Visit: Yes ED Registration Date: 08/29/16 Care time: The patient presented to the Emergency Department on the above date and was hospitalized for further evaluation of their emergent condition. - New Patient This patient is new to me today: Yes Date on this admission: 09/01/16 - Critical Care Critical Care patient: No
[2016-09-01] MEDS ORDERED: PROPOFOL 20 ML ONE (15:14)
[2016-09-01] MEDS ORDERED: SUCCINYLCHOLINE CHLORIDE 200 MG/10 ML VIAL ONE (15:14)
[2016-09-01] MEDS ORDERED: LIDOCAINE HCL/PF 2% SDV 5ML VIAL ONE (15:14)
[2016-09-01] MEDS ORDERED: GLYCOPYRROLATE 0.2 MG/1 ML VIAL ONE ×4 (15:15)
[2016-09-01] MEDS ORDERED: NEOSTIGMINE METHYLSULFATE 0.5 MG/ML - 10 ML MDV ONE (15:16)
[2016-09-01] MEDS ORDERED: INDOMETHACIN 50 MG RECTAL SUPPOSITORY PR ONE (15:45)
[2016-09-01] MEDS ORDERED: DEXAMETHASONE SOD PHOSPHATE 10 MG/1 ML VIAL ONE (16:33)
[2016-09-01] MEDS ORDERED: ONDANSETRON 4 MG/2 ML VIAL ONE (16:33)
[2016-09-01] MEDS ORDERED: traMADol HCL 50 MG TABLET PO PRN (17:06)
[2016-09-02 08:14] LABS: MCHC 33.9 g/dl (32.0-36.0); MEAN CELL VOLUME 94.3 fl (80-96); MEAN PLT VOLUME 9.5 fl (7.5-11.1); PLATELET COUNT 314 K/MM3 (134-434); RDW 14.1 % (11.6-15.6); WHITE BLOOD COUNT 8.3 K/mm3 (4.0-10.0)
[2016-09-02 08:34] LABS: ALBUMIN 3.4 g/dl (3.4-5.0)
[2016-09-02 08:41] LABS: ALK PHOS 756 U/L (45-117); ANION GAP 8 (8-16); BILIRUBIN,TOTAL 8.2 mg/dL (0.2-1.0); CALCIUM 9.5 mg/dL (8.5-10.1); CO2 31 mmol/L (21-32); CREATININE 0.7 mg/dL (0.55-1.02); GLUCOSE,RANDOM 106 mg/dL (74-106); SGOT/AST 187 U/L (15-37)
[2016-09-02 08:43] LABS: SGPT/ALT 546 U/L (12-78)
[2016-09-02] MEDS: RANITIDINE HCL 150 MG TABLET (FP) PO SCH (09:18)
[2016-09-02] MEDS: DEXTROSE 5%-NORMAL SALINE 1,000 ML IV SCH ×3 (09:20→17:34)
--- NOTE | 2016-09-02 09:40 | PN ---
Progress Note, Physician Chief Complaint: painless jaundice History of Present Illness: Pt seen and examined in bed; she states she is feeling better, had liquids for breakfast. No complaints of pain or nausea. Having flatus and feeling bloated. No BM yet. - Current Medication List Current Medications: Active Medications Dextrose/Sodium Chloride (D5-Ns -) 1,000 mls @ 125 mls/hr IV ASDIR [facility] Last Admin: 09/02/16 09:20 Dose: 125 mls/hr Ranitidine HCl (Zantac -) 150 mg PO DAILY [facility] Last Admin: 09/02/16 09:18 Dose: 150 mg Tramadol HCl (Ultram -) 50 mg PO Q6H PRN PRN Reason: PAIN - Objective Vital Signs: Vital Signs Temperature 98.2 F 09/02/16 09:11 Pulse Rate 54 L 09/02/16 09:11 Respiratory Rate 18 09/02/16 09:11 Blood Pressure 157/66 09/02/16 09:11 O2 Sat by Pulse Oximetry (%) 97 09/01/16 21:00 Constitutional: Yes: No Distress, Calm Eyes: Yes: EOM Intact, Sclera Icterus Cardiovascular: Yes: Regular Rate and Rhythm. No: Murmur Respiratory: Yes: Regular, CTA Bilaterally Gastrointestinal: Yes: Soft, Distention. No: Tenderness Neurological: Yes: Alert, Oriented Labs: CBC, BMP 09/02/16 06:40 09/02/16 06:40 INR, PTT INR 0.96 (0.82-1.09) L 08/29/16 21:09 CMP Sodium 142 mmol/L (136-145) 09/02/16 06:40 Potassium 5.0 mmol/L (3.5-5.1) D 09/02/16 06:40 Chloride 103 mmol/L (98-107) 09/02/16 06:40 Carbon Dioxide 31 mmol/L (21-32) 09/02/16 06:40 Anion Gap 8 (8-16) 09/02/16 06:40 BUN 8 mg/dL (7-18) 09/02/16 06:40 Creatinine 0.7 mg/dL (0.55-1.02) 09/02/16 06:40 Creat Clearance w eGFR > 60 (>60) 09/02/16 06:40 Random Glucose 106 mg/dL (74-106) D 09/02/16 06:40 Phosphorus 3.4 mg/dl (2.5-4.6) 08/31/16 07:47 Calcium 9.5 mg/dL (8.5-10.1) 09/02/16 06:40 Magnesium 2.2 mg/dL (1.8-2.4) 09/01/16 07:04 Direct Bilirubin 8.6 mg/dl (0.0-0.2) H D 08/30/16 07:00 GGT 2010 U/L (3-64) H 08/29/16 21:32 Total Bilirubin 8.2 mg/dL (0.2-1.0) H D 09/02/16 06:40 AST 187 U/L (15-37) H 09/02/16 06:40 ALT 546 U/L (12-78) H 09/02/16 06:40 Alkaline Phosphatase 756 U/L (45-117) H 09/02/16 06:40 Total Protein 7.0 g/dl (6.4-8.2) D 09/02/16 06:40 Albumin 3.4 g/dl (3.4-5.0) 09/02/16 06:40 Total Amylase 45 U/L (25-125) 08/30/16 07:38 Lipase 382 U/L (73-393) 09/01/16 07:04 Tumor Marker AFP 3.6 ng/ml (0.0-8.3) 08/31/16 17:45 Carcinoembryonic Ag 2.4 ng/mL (0.0-4.7) 09/01/16 08:50 CA 19-9 Antigen 68 U/mL (0-35) H 09/01/16 07:04 Ca 19-9 elevated: could be in setting of current acute liver injury or could represent malignancy. Will await pathology of ERCP brushings. - ....Imaging Other: Report Reviewed (s/p ERCP - enlarged ampulla, distal short CBD stricture , sphincterotomy and stent placed, brushings pending), Image Reviewed Problem List - Problems (1) Common bile duct (CBD) obstruction Assessment/Plan: CBD obstruction without stones s/p ERCP by GI. CEA, AFP normal, Ca19-9 up. Distal CBD stricture on ERCP, brushings sent for pathology, stent left. Pt resuming po. Will f/u with GI for EUS as outpatient once LFTs decrease. No general surgical intervention currently indicated - pt may need tertiary center/[facility] surgeon pending further workup. Will sign off - thank you for the opportunity to assist in the care of this patient. Code(s): K83.1 - OBSTRUCTION OF BILE DUCT
--- NOTE | 2016-09-02 11:12 | PN ---
Progress Note (short form) - Note Progress Note: POD #1 - s/p ERCP under general anesthesia. Pt. doing well, sitting comfortably in chair. No complaints. No apparent anesthetic complications noted. Continue current care.
--- NOTE | 2016-09-02 11:41 | PN ---
Progress Note (short form) - Note Progress Note: Subjective: The patient was seen and examined at the bedside, she has no complaints at this time. Current Medications Generic Name Dose Route Start Last Admin Trade Name Freq PRN Reason Stop Dose Admin Dextrose/Sodium Chloride 1,000 mls @ 125 mls/hr 09/01/16 17:06 09/02/16 09:20 D5-Ns - IV 125 mls/hr ASDIR FRANCISCO Administration Ranitidine HCl 150 mg 09/02/16 10:00 09/02/16 09:18 Zantac - PO 150 mg DAILY FRANCISCO Administration Tramadol HCl 50 mg 09/01/16 17:06 Ultram - PO Q6H PRN PAIN Objective: Vital Signs Period Temp Pulse Resp BP Sys/Horne Pulse Ox Last 24 Hr 97.7 F-98.5 F 50-58 16-18 106-157/58-74 96-98 Physical Exam: General: NAD, A&Ox3, diffusely jaundice HEENT: Sclera icteric Lungs: CTA bilaterally Heart: RRR, S1S2 Abd: Soft, non-tender, non-distended. Normoactive bowel sounds Ext: warm, well-perfused. 2+ DP/PT bilaterally Neuro: CN 2-12 intact CBCD WBC 8.3 K/mm3 (4.0-10.0) D 09/02/16 06:40 RBC 4.35 M/mm3 (3.60-5.2) 09/02/16 06:40 Hgb 13.9 GM/dL (10.7-15.3) D 09/02/16 06:40 Hct 41.0 % (32.4-45.2) 09/02/16 06:40 MCV 94.3 fl (80-96) 09/02/16 06:40 MCHC 33.9 g/dl (32.0-36.0) 09/02/16 06:40 RDW 14.1 % (11.6-15.6) 09/02/16 06:40 Plt Count 314 K/MM3 (134-434) D 09/02/16 06:40 MPV 9.5 fl (7.5-11.1) 09/02/16 06:40 CMP Sodium 142 mmol/L (136-145) 09/02/16 06:40 Potassium 5.0 mmol/L (3.5-5.1) D 09/02/16 06:40 Chloride 103 mmol/L (98-107) 09/02/16 06:40 Carbon Dioxide 31 mmol/L (21-32) 09/02/16 06:40 Anion Gap 8 (8-16) 09/02/16 06:40 BUN 8 mg/dL (7-18) 09/02/16 06:40 Creatinine 0.7 mg/dL (0.55-1.02) 09/02/16 06:40 Creat Clearance w eGFR > 60 (>60) 09/02/16 06:40 Random Glucose 106 mg/dL (74-106) D 09/02/16 06:40 Calcium 9.5 mg/dL (8.5-10.1) 09/02/16 06:40 Total Bilirubin 8.2 mg/dL (0.2-1.0) H D 09/02/16 06:40 AST 187 U/L (15-37) H 09/02/16 06:40 ALT 546 U/L (12-78) H 09/02/16 06:40 Alkaline Phosphatase 756 U/L (45-117) H 09/02/16 06:40 Total Protein 7.0 g/dl (6.4-8.2) D 09/02/16 06:40 Albumin 3.4 g/dl (3.4-5.0) 09/02/16 06:40 Assessment: This is a 56 year old female with PMHx of hyperlipidemia who presented to the ED with jaundice. Plan: 1) GI: CBD obstruction - MRCP with distal CBD obstruction with marked proximal intra and extrahepatic biliary ductal dilatation with cystic duct dilatation and marked distention of the gallbladder. No evidence of cholelithiasis or choledocholithiasis - ERCP yesterday with stenting - Transaminitis noted - CA 19-9 68 - CEA, tumor marker AFP wnl - Appreciate GI consult - Appreciate surgery consult 2) Cardiology: Hyperlipidemia - Hold Lipitor 2/2 transaminitis 3) F/E/N: - Monitor electrolytes - Clear liquid diet 4) Prophylaxis: - SCDs bilaterally - OOB ambulating 5) Dispo: - Requires continued inpatient care CODE STATUS: FULL CODE Visit type - Emergency Visit Emergency Visit: Yes ED Registration Date: 08/29/16 Care time: The patient presented to the Emergency Department on the above date and was hospitalized for further evaluation of their emergent condition. - New Patient This patient is new to me today: No - Critical Care Critical Care patient: No
--- NOTE | 2016-09-02 18:23 | PN ---
Progress Note (short form) - Note Progress Note: Patient comfortable No pain. t bili down to 8 Last Vital Signs Temp Pulse Resp BP Pulse Ox 97.8 F 47 L 20 157/66 97 09/02/16 14:00 09/02/16 14:00 09/02/16 14:00 09/02/16 09:11 09/02/16 09:00 EXAM: deeply jaundiced Lungs clear Cor Reg Abd soft Labs: Hepatic Panel Direct Bilirubin 8.6 mg/dl (0.0-0.2) H D 08/30/16 07:00 Total Bilirubin 8.2 mg/dL (0.2-1.0) H D 09/02/16 06:40 AST 187 U/L (15-37) H 09/02/16 06:40 ALT 546 U/L (12-78) H 09/02/16 06:40 Alkaline Phosphatase 756 U/L (45-117) H 09/02/16 06:40 Albumin 3.4 g/dl (3.4-5.0) 09/02/16 06:40 Abnormal Lab Results 09/01/16 09/02/16 07:04 06:40 Total Bilirubin 8.2 H D AST 187 H ALT 546 H Alkaline Phosphatase 756 H CA 19-9 Antigen 68 H A/P Poss pancreatic CA with obstructive jaundice. EUS to be arranged as opt as per Dr Lima She is to see him in the office Sunday
[2016-09-03 08:05] VITALS: BP 135/71; PULSE 47; TEMP 97.8
[2016-09-03 08:20] LABS: CALCIUM 8.5 mg/dL (8.5-10.1)
[2016-09-03 08:26] LABS: ALK PHOS 626 U/L (45-117); ANION GAP 5 (8-16); BILIRUBIN,TOTAL 4.8 mg/dL (0.2-1.0); CO2 32 mmol/L (21-32); CREATININE 0.6 mg/dL (0.55-1.02); GLUCOSE,RANDOM 128 mg/dL (74-106); SGOT/AST 230 U/L (15-37); TOT PROT 5.8 g/dl (6.4-8.2)
[2016-09-03 08:27] LABS: SGPT/ALT 539 U/L (12-78)
[2016-09-03] MEDS: RANITIDINE HCL 150 MG TABLET (FP) PO SCH ×2 (10:06→10:08)
[2016-09-03] MEDS: DEXTROSE 5%-NORMAL SALINE 1,000 ML IV SCH (10:06)
--- NOTE | 2016-09-03 10:48 | DS ---
Physical Examination Vital Signs: Vital Signs Temperature 97.8 F 09/03/16 08:00 Pulse Rate 47 L 09/03/16 08:00 Respiratory Rate 18 09/03/16 08:00 Blood Pressure 135/71 09/03/16 08:00 O2 Sat by Pulse Oximetry (%) 98 09/02/16 21:00 Labs: CBC, BMP 09/02/16 06:40 09/03/16 06:45 Discharge Summary Reason For Visit: JAUNDICE Current Active Problems Common bile duct (CBD) obstruction (Acute) Common bile duct stricture (Acute) Elevated liver function tests (Acute) Jaundice (Acute) Hospital Course: Discussed with Dr. Morris, discharge on full liquid diet and follow-up with Dr. Lima in the office tomorrow to schedule an EUS Condition: Stable - Instructions Diet, Activity, Other Instructions: Please return to the ED with new, persistent, or worsening symptoms. Please follow-up with providers as indicated. Follow-up with Dr. Lima tomorrow, Sunday09/04/16 to schedule an outpatient endoscopic ultrasound and to have your liver enzymes rechecked. Continue full liquid diet until you see Dr. Lima Referrals: Adams Stanley MD [Primary Care Provider] - 1 Week Haresh Man MD [Staff Physician] - 1 Week Roberto Lima MD [Staff Physician] - (Follow-up on 09/04/16) Disposition: HOME - Home Medications Comprehensive Discharge Medication List: Ambulatory Orders Ranitidine [Zantac -] 150 mg PO DAILY #30 tablet 09/03/16
--- NOTE | 2016-09-06 09:02 | PATH ---
Cytology Non-Gynecological Report Patient Name: RENO MURRIETA [facility]. Rec. #: [id number] /Age/Gender: 1960 (Age: 56) / F Account: [id number] Location: [address] [place] [address]/[facility] Taken: 09/01/2016 Received: 09/04/2016 Reported: 09/06/2016 Physicians: Manjit Waite M.D. Specimen(s) Received COMMON BILE DUCT BRUSHONG Clinical History Common bile duct stricture Final Diagnosis COMMON BILE DUCT BRUSHING: SATISFACTORY FOR EVALUATION. SCATTERED CLUSTERS OF ATYPICAL CELLS PRESENT. Comment: Correlations with imaging findings and followup are suggested. Electronically Signed Carlos A Reynaga M.D. Gross Description Received is a brush in 20 cc of in 95% alcohol. Three Pap stained smear slides are made.
== END 2016-09-03 11:52 | disposition home or self-care (01) | DRG 445 ==
LOC: FER 21:05 → FM/S 23:55 → MERGE 23:55 → J6S 08-31 12:53
PROVIDERS: ADMIT Internal Medicine; ATTEND Registered Nurse
PROC: BF10YZZ Fluoroscopy of Bile Ducts using Other Contrast (ICD-10-PCS; 2016-09-01)
PROC: 0F798DZ Dilation of Common Bile Duct with Intraluminal Device, Via Natural or Artificial Opening Endoscopic (ICD-10-PCS; principal; 2016-09-01 15:00)
DX: K83.1 Obstruction of bile duct (principal); R17 Unspecified jaundice; Z87.891 Personal history of nicotine dependence; E78.5 Hyperlipidemia, unspecified; R79.89 Other specified abnormal findings of blood chemistry; R01.1 Cardiac murmur, unspecified
CPT/HCPCS: 36415; 71010-TC; 74176-TC; 74181-TC; 74330-TC; 80053; 81003; 81015; 82105; 82150; 82248; 82378; 82977; 83690; 83735; 84100; 85025; 85027; 85610; 85730; 86301; 86704; 86706; 86708; 86803; 86850; 86900; 86901; 87340; 88104; 93005; 99282-25